=== PATIENT | female | born 1985 | race Caucasian/White ===

== ENCOUNTER 2024-10-12 16:58 | Emergency (ER) | payer MEDICAID ==
[~2024-10-12] VITALS: Ht 172.7 cm; Wt 128.8 kg
[2024-10-12 17:08] VITALS: BP 174/106; PULSE 92; RESP 16; TEMP 97.6
[2024-10-12] MEDS ORDERED: ketOROlac 15MG/ML VIAL (15MG/ML) IM STA (17:25)
[2024-10-12] MEDS ORDERED: HYDROcodone/APAP 5/325 1 TAB TABLET PO STA (17:25)
[2024-10-12 18:22] LABS: BASOPHILS # (AUTO) 0.09 K/uL (0.00-0.20); BASOPHILS % (AUTO) 0.9 % (0.0-5.0); EOSINOPHILS # (AUTO) 0.43 K/uL (0.00-0.70); EOSINOPHILS % (AUTO) 4.4 % (0.0-8.0); IMMATURE GRANULOCYTE ABSOLUTE 0.09 K/uL (0-1); LYMPHOCYTES # (AUTO) 4.2 K/uL (1.0-4.8); LYMPHOCYTES % (AUTO) 42.4 % (21.0-51.0); MEAN CORPUSCULAR HGB CONC 32.4 g/dL (32.0-36.0); MEAN CORPUSCULAR VOLUME 86.4 fL (79-99); MONOCYTES # (AUTO) 0.5 K/uL (0.1-1.0); MONOCYTES % (AUTO) 5.2 % (3.0-13.0); NEUTROPHILS # (AUTO) 4.6 K/uL (1.8-7.7); NEUTROPHILS % (AUTO) 46.2 % (40.0-77.0); PLATELET COUNT (AUTO) 278 K/uL (130-400); RED BLOOD CELL COUNT(AUTO) 4.86 MIL/uL (4.00-5.50); RED CELL DISTRIBUTION WIDTH 12.6 % (11.0-15.5); WHITE BLOOD COUNT (AUTO) 9.9 K/uL (4.8-10.8)
[2024-10-12 18:35] LABS: CREATININE 0.6 mg/dL (0.5-1.0); POTASSIUM 3.8 mmol/L (3.5-5.1)
--- NOTE | 2024-10-12 19:43 | HMCIMG ---
-ANKLE 2VWS RT HISTORY: Ankle pain COMPARISON: None TECHNIQUE: 3 images of right ankle were obtained. FINDINGS: There is no acute displaced fracture or dislocation. There is soft tissue swelling. Calcaneal spur is seen. Degenerative changes are seen. IMPRESSION: 1. Findings as described above.
== END 2024-10-12 19:50 | disposition left against medical advice (07) ==
LOC: EDH 16:58
DX: R50.9 Fever, unspecified (principal); M79.89 Other specified soft tissue disorders; Z53.21 Procedure and treatment not carried out due to patient leaving prior to being seen by health care provider
CPT/HCPCS: 36415; 73600; 80048; 85025